=== PATIENT | female | born 1985 ===

== ENCOUNTER 2017-07-11 05:43 | Day surgery (SDC) | payer BC ==
[2017-07-11] MEDS ORDERED: Ketorolac Tromethamine 30 MG/ML VIAL ONE (06:32)
[2017-07-11] MEDS ORDERED: Ondansetron HCl/PF 4 MG/2 ML Vial ONE ×2 (06:32→07:37)
[2017-07-11 06:40] LABS: #Lymphocytes 1.2 thou/uL (1.20-3.40); #Monocytes 0.6 thou/uL (0.11-0.59); %Basophils 0.1 % (0.0-1.0); %Eosinophils 0.1 % (0.0-10.0); %Lymphocytes 7.3 % (21.0-51.0); %Monocytes 3.5 % (0.0-10.0); Mean Corpuscular HGB CONC 33.6 g/dL (32.0-36.0); Mean Corpuscular Hemoglobin 29.6 pg (27.0-31.0); Mean Corpuscular Volume 88.2 fl (81.0-99.0); Mean Platelet Volume 7.3 fL (7.4-10.4); Platelet Count 279 thou/uL (130-400); RBC Distribution Width 11.6 % (11.5-14.5); Red Blood Cell (RBC) Count 4.07 mill/uL (4.20-5.40); White Blood Cell (WBC) Count 15.7 thou/uL (4.8-10.8)
[2017-07-11 06:57] LABS: BHCG - Serum Negative (NEGATIVE); Pregs Control Background? CLEAR/WHITE (CLR/WHITE); Pregs Control Bar Appear? YES (CONTROL BAR)
[2017-07-11 06:58] LABS: ALT (SGPT) 11 U/L (8-55); AST (SGOT) 22 U/L (5-34); Alkaline Phosphatase 64 U/L (40-150); Anion Gap 9 mmol/L (10-20); BUN (Urea Nitrogen) 13 mg/dL (7.0-18.7); Bilirubin, Total 0.4 mg/dL (0.2-1.2); Calc. Creatinine Clearance 0 mL/min (70-130); Calcium 9.2 mg/dL (7.8-10.44); Carbon Dioxide 22 mmol/L (22-29); Chloride 108 mmol/L (98-107); Estimated GFR-MDRD 74; Globulin 3.2 g/dL (2.4-3.5); Glucose 106 mg/dL (70-105); Lipase 16 U/L (8-78); Potassium 3.6 mmol/L (3.5-5.1); Protein, Total 7.2 g/dL (6.0-8.3); Sodium 135 mmol/L (136-145)
[2017-07-11 07:10] LABS: Bilirubin Negative (Negative); Blood, Urine Trace (Negative); Clarity CLOUDY (Clear); Glucose, Urine (Dipstick) Negative (Negative); Leukocyte Moderate (Negative); Nitrite Negative (Negative); Protein, Urine (Dipstick) Trace mg/dL (Neg-Trace); Specific Gravity, Urine 1.019 (1.002-1.036); Urobilinogen 0.2 mg/dL (0.2-1.0)
[2017-07-11 07:12] LABS: Bacteria/HPF 4+ HPF (None Seen); Hyaline Casts/LPF 4-6 HYALINE CAST LPF (0-3 Hyaline); Squamous Epithelial 0-3 HPF (0-3); WBC/HPF 21-50 HPF (0-3)
[2017-07-11] MEDS ORDERED: Dexamethasone 20 MG/5 ML VIAL ONE (07:37)
[2017-07-11] MEDS ORDERED: PROPOFOL 200 MG/20 ML VIAL ONE (07:37)
[2017-07-11] MEDS ORDERED: Lidocaine 1% PF 5 ML VIAL ONE (07:37)
--- NOTE | 2017-07-11 07:48 | CT ---
CT ABDOMEN AND PELVIS WITHOUT CONTRAST STONE PROTOCOL: Date: 07/11/17 HISTORY: Right flank pain, right lower quadrant pain. COMPARISON: None. FINDINGS: There is moderate right-sided hydroureteronephrosis and perinephric stranding. There is a 3.0 x 5.0 m m calculus at the right distal ureter at the ureterovesical junction. No other calculi seen within th e right kidney. No calculi seen within the left kidney or renal collecting system. No calculus within the urinary bladder. No dilated loops of large or small bowel. The appendix is visualized and is normal. Skeleton is unremarkable. IMPRESSION: Distal right ureteral calculus at ureterovesical junction causing moderate right-sided hydroureterone phrosis. Calculus measures approximately 3.0 x 5.0 mm. POS: [facility]
[2017-07-11] MEDS ORDERED: Iothalamate Meglumine 60% 50 ML VIAL FS ONE (08:57)
[2017-07-11] MEDS ORDERED: Fentanyl 100 MCG/2 ML VIAL ONE (09:32)
[2017-07-11] MEDS ORDERED: cefTRIAXone\\ROCEPHIN 1 GM VIAL ONE (09:41)
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
[2017-07-11] MEDS ORDERED: Oxybutynin 5 MG TAB ONE (10:51)
[2017-07-11] MEDS ORDERED: Phenazopyridine HCl 97.5 MG TABLET ONE (10:52)
--- NOTE | 2017-07-11 11:34 | OP ---
DATE OF PROCEDURE: 07/11/2017 SERVICE: Urology. SURGEON: Jorge Lujan M.D. PREOPERATIVE DIAGNOSIS: Right ureteral stone with urinary tract infection. POSTOPERATIVE DIAGNOSIS: Right ureteral stone with urinary tract infection. PROCEDURE PERFORMED: Cystoscopy with right ureteral stent placement, 6 x 24 double-J stent. INDICATIONS FOR PROCEDURE: Ms. Bah is a 32-year-old black female who initially came into the [facility] room with right-sided flank pain and CT demonstrating a 3 x 5 mm distal ureteral stone. UA w as very suspicious for urinary tract infection. The patient does have an elevated white count, altho ugh she has no fevers. I talked about ureteral stent placement to avoid a severe infection, pyelonep hritis, sepsis or even with risks and benefits of cystoscopy with stent placement and she agree d to proceed forward with cystoscopy with stent placement. DESCRIPTION OF PROCEDURE: After identification of armband and verification of consent, the patient w as brought back to the operating room where she underwent general anesthesia with an LMA. She was th en placed in dorsal lithotomy position, prepped and draped in usual sterile fashion. After appropria te timeout, a lubricated 22 Greek rigid cystoscope was introduced per urethra into the bladder. The re was a significant amount of cystitis glandularis present, but otherwise no concerning findings. T he ureters were in their orthotopic location with no efflux coming from the right ureter. A 0.035 se nsor wire was cannulated through the right ureter up to the level of the renal pelvis. A 6 x 24 doub le-J stent was advanced over the ureteral stent up to the level of the renal pelvis. The wire was th en removed leaving a good curl in the renal pelvis and a good curl in the bladder. The bladder was t hen emptied and the cystoscope removed. The patient was then awakened and taken to PACU for recovery in stable condition. COMPLICATIONS: None. ESTIMATED BLOOD LOSS: Minimal. RETAINED TUBES AND DRAINS: A 6 x 24 double-J stent on the right. SPECIMENS: None. DISPOSITION: The patient will be discharged home on antibiotics for 7 days and we will bring her joy k in 1 week for ureteroscopy and removal of the right-sided stone.
[2017-07-11] MEDS ORDERED: HYDROcodone/Acetaminophen 5/325 mg Tablet ONE (13:37)
== END 2017-07-11 14:00 | disposition home or self-care (01) ==
LOC: ERS 05:43 → SDC 09:30 → ERS 09:41 → SDC 14:00
PROVIDERS: ATTEND Urology
PROC: 0T768DZ Dilation of Right Ureter with Intraluminal Device, Via Natural or Artificial Opening Endoscopic (ICD-10-PCS; principal; 2017-07-11)
DX: N20.1 Calculus of ureter (principal); N39.0 Urinary tract infection, site not specified
CPT/HCPCS: 36415; 74176; 76000; 80053; 81003; 81015; 83690; 84703; 85025; 87077; 87086; 87186; 96361; 96374; 96375; C1769; J0131; J0696; J1100; J1885; J2001; J2270; J2405; J2704; J3010; Q9961